=== PATIENT | female | born 1960 | race Caucasian/White ===

== ENCOUNTER 2017-03-16 10:16 | Day surgery (SDC) | payer MEDICAID ==
--- NOTE | 2017-02-16 08:04 | CP.SDSHP ---
Same Day Surgery H & P - History Proposed Procedure: colonoscopy - Date & Time Date: 02/16/17 Time: 08:04 Short Stay Discharge - Short Stay Discharge Admitting Diagnosis/Reason for Visit: SCREENING Disposition: HOME/ ROUTINE
--- NOTE | 2017-03-16 10:38 | CP.SDSHP ---
Same Day Surgery H & P - History Proposed Procedure: colonoscopy - Previous Medical/Surgical History Previous Surgical History: Csectionx2 - Date & Time Date: 03/16/17 Time: 10:38 Short Stay Discharge - Short Stay Discharge Admitting Diagnosis/Reason for Visit: ENCOUNTER FOR SCREENING FOR MALIGNANT NEOPLASM OF Disposition: HOME/ ROUTINE
[2017-03-16 11:02] VITALS: BMI 21.9
[2017-03-16] MEDS ORDERED: Propofol 10 mg/ml Inj (20 ML) ONE (11:26)
[2017-03-16 11:56] VITALS: TEMP 98.7; O2SAT 100
[2017-03-16 13:39] VITALS: BP 118/73; PULSE 64; RESP 12
== END 2017-03-16 12:50 | disposition home or self-care (01) ==
LOC: C.ENDO 10:16
PROVIDERS: ATTEND Colon & Rectal Surgery
DX: Z12.11 Encounter for screening for malignant neoplasm of colon (principal); K64.8 Other hemorrhoids
CPT/HCPCS: 45378; J2704